=== PATIENT | female | born 1995 | race Two or more races ===

== ENCOUNTER 2019-11-06 16:10 | Inpatient (IN) | payer OTHER ==
[~2019-11-06] VITALS: Ht 152.4 cm; Wt 44.5 kg
[2019-11-06 16:45] LABS: MICROSCOPIC INDICATED
[2019-11-06] MEDS ORDERED: IBUPROFEN 600 MG TABLET PO ONE (17:00)
[2019-11-06] MEDS ORDERED: SODIUM CHLORIDE 0.9% 1,000ML IVBOLUS ONE ×2 (17:00→19:00)
[2019-11-06] MEDS ORDERED: SODIUM CHLORIDE FLUSH 10ML SYR IVF ONE (17:00)
[2019-11-06] MEDS ORDERED: IBUPROFEN 200 MG TABLET ONE (17:06)
[2019-11-06] MEDS ORDERED: CEFTRIAXONE PMX 1GM/50ML 50 ML IVPB ONE (17:30)
[2019-11-06 17:35] LABS: BASOPHILS % (AUTO) 0 % (0-1); EOSINOPHILS % (AUTO) 0 % (1-7); LYMPHOCYTES # (AUTO) 0.64 x10^3/uL (1-3.4); LYMPHOCYTES % (AUTO) 5 % (22-44); MD NO; MEAN CORPUSCULAR HGB CONC 33.7 g/dL (32.4-35.8); MEAN PLATELET VOLUME 8.4 fL (7.4-10.4); MONOCYTES # (AUTO) 0.38 x10^3/uL (0.2-0.8); MONOCYTES % (AUTO) 3 % (2-9); NEUTROPHILS # (AUTO) 12.56 x10^3/uL (1.8-6.8); NEUTROPHILS % (AUTO) 93 % (42-75); PLATELET COUNT 258 x10^3/uL (130-400); RED CELL DISTRIBUTION WIDTH 13.3 % (9.6-15.2)
[2019-11-06] MEDS ORDERED: CEFTRIAXONE PMX 1GM/50ML 50 ML ONE (17:36)
[2019-11-06 17:46] LABS: ALBUMIN 3.8 g/dL (3.4-5.0); ANION GAP 11 mmol/L (5-15); CALCIUM 9.5 mg/dL (8.5-10.1); CHLORIDE 103 mmol/L (98-107); CREATININE 0.93 mg/dL (0.55-1.02)
--- NOTE | 2019-11-06 17:46 | NUR ---
ABX RUNNING PER JUN. 2 SETS BLOOD CX COLLECTED PRIOR TO ADMIN.
--- NOTE | 2019-11-06 18:25 | NUR ---
ALL RESULTS ARE BACK AT THIS TIME. CHART UP FOR RECHECK.
--- NOTE | 2019-11-06 18:39 | NUR ---
2ND LITER NS RUNNING PER MD VERBAL ORDER. HR 118-120.
--- NOTE | 2019-11-06 19:19 | NUR ---
2ND LITER NS COMPLETE. HR CONTINUES IN LOW 120s. CHART UP FOR RECHECK.
--- NOTE | 2019-11-06 20:14 | NUR ---
HOSPITALIST AT BEDSIDE TO UPDATE PT ON POC.
[2019-11-06] MEDS ORDERED: ACETAMINOPHEN 500 MG TABLET PO ONE (20:30)
[2019-11-06] MEDS ORDERED: ACETAMINOPHEN 500 MG TABLET ONE (20:31)
--- NOTE | 2019-11-06 20:34 | NUR ---
PT TO BE ADMITTED. TEMP RETAKEN BY 103.2. TYLENOL GIVEN PER JUN.
--- NOTE | 2019-11-06 20:43 | NUR ---
COMPLETED MRI SCREENING WITH PT FRIEND OVER PHONE TRANSLATING.
--- NOTE | 2019-11-06 21:03 | NUR ---
PT GOING TO MRI
[2019-11-06] MEDS ORDERED: GADOTERATE 7.5 MMOL/15 ML SYR ONE (21:47)
--- NOTE | 2019-11-06 21:59 | NUR ---
PT BACK FROM MRI. HR STILL ELEVATED. TEMP 99.1. PT RESTING ON GURNEY.
[2019-11-06] MEDS ORDERED: CEFTRIAXONE PMX 1GM/50ML 50 ML IVPB SCH (22:30)
[2019-11-06] MEDS ORDERED: SODIUM CHLORIDE FLUSH 10ML SYR IVF PRN (22:30)
[2019-11-06] MEDS ORDERED: ONDANSETRON ODT 4 MG PO PRN (22:30)
--- NOTE | 2019-11-06 22:59 | NUR ---
REPORT GIVEN TO HERB BERKOWITZ.
[2019-11-06 23:50] VITALS: BP 93/59
[2019-11-06] MEDS: ENOXAPARIN 40 MG/0.4 ML SQ SCH (23:54)
[2019-11-07] MEDS: NS + 20MEQ KCL 1,000 ML IV SCH ×4 (00:12→21:40)
[2019-11-07] MEDS: IBUPROFEN 600 MG TABLET PO PRN ×2 (00:21→20:53)
[2019-11-07 01:06] VITALS: BP 99/57
[2019-11-07 07:34] VITALS: BP 90/55
[2019-11-07] MEDS: SENNA/DOCUSATE TABLET PO SCH (10:01)
[2019-11-07] MEDS: ACETAMINOPHEN 325 MG TABLET PO PRN ×3 (10:08→23:58)
[2019-11-07] MEDS: PIPERACILLIN/TAZO/PMX 3.375GM 50 ML IV SCH ×2 (11:36→20:43)
[2019-11-07 14:43] VITALS: BP 100/64
[2019-11-07 21:08] VITALS: BP 106/69
[2019-11-07] MEDS: ENOXAPARIN 40 MG/0.4 ML SQ SCH (23:58)
[2019-11-08 00:02] VITALS: BP 91/56
[2019-11-08] MEDS: PIPERACILLIN/TAZO/PMX 3.375GM 50 ML IV SCH ×3 (04:56→20:00)
[2019-11-08] MEDS: ACETAMINOPHEN 325 MG TABLET PO PRN ×2 (05:20→20:00)
[2019-11-08] MEDS: SENNA/DOCUSATE TABLET PO SCH ×2 (07:56→08:33)
[2019-11-08 09:29] VITALS: BP 99/66
[2019-11-08 14:05] VITALS: BP 113/76
[2019-11-08 19:57] VITALS: BP 114/74
[2019-11-08] MEDS: ENOXAPARIN 40 MG/0.4 ML SQ SCH (23:16)
[2019-11-09 00:57] VITALS: BP 154/89
[2019-11-09 01:30] VITALS: BP 94/60
[2019-11-09] MEDS: PIPERACILLIN/TAZO/PMX 3.375GM 50 ML IV SCH ×3 (04:48→20:12)
[2019-11-09] MEDS: ACETAMINOPHEN 325 MG TABLET PO PRN ×2 (04:56→09:22)
[2019-11-09 06:09] LABS: BASOPHILS # (AUTO) 0.03 x10^3/uL (0-0.1); BASOPHILS % (AUTO) 0 % (0-1); EOSINOPHILS # (AUTO) 0.02 x10^3/uL (0-0.4); EOSINOPHILS % (AUTO) 0 % (1-7); LYMPHOCYTES # (AUTO) 1.46 x10^3/uL (1-3.4); LYMPHOCYTES % (AUTO) 21 % (22-44); MD NO; MEAN CORPUSCULAR HEMOGLOBIN 30.3 pg (27.0-34.8); MEAN CORPUSCULAR HGB CONC 32.7 g/dL (32.4-35.8); MEAN CORPUSCULAR VOLUME 92.4 fL (80-100); MEAN PLATELET VOLUME 7.9 fL (7.4-10.4); MONOCYTES # (AUTO) 0.76 x10^3/uL (0.2-0.8); MONOCYTES % (AUTO) 11 % (2-9); NEUTROPHILS # (AUTO) 4.71 x10^3/uL (1.8-6.8); NEUTROPHILS % (AUTO) 68 % (42-75); PLATELET COUNT 237 x10^3/uL (130-400); RED CELL DISTRIBUTION WIDTH 13.9 % (9.6-15.2)
[2019-11-09 06:37] LABS: ALANINE AMINOTRANSFERASE 42 U/L (12-78); ALBUMIN 2.8 g/dL (3.4-5.0); ANION GAP 7 mmol/L (5-15); CHLORIDE 109 mmol/L (98-107); CREATININE 0.67 mg/dL (0.55-1.02)
[2019-11-09 06:39] LABS: ALKALINE PHOSPHATASE 86 U/L (45-117); BILIRUBIN,TOTAL 0.3 mg/dL (0.2-1.0); TOTAL PROTEIN 7.4 g/dL (6.4-8.2)
[2019-11-09 07:35] VITALS: BP 96/64
[2019-11-09] MEDS: SENNA/DOCUSATE TABLET PO SCH (09:00)
[2019-11-09 14:53] VITALS: BP 111/74
[2019-11-09 19:40] VITALS: BP 106/70
[2019-11-09] MEDS: IBUPROFEN 600 MG TABLET PO PRN (20:12)
[2019-11-09] MEDS: ENOXAPARIN 40 MG/0.4 ML SQ SCH (22:51)
[2019-11-10 01:04] VITALS: BP 92/62
[2019-11-10] MEDS: ACETAMINOPHEN 325 MG TABLET PO PRN (01:09)
[2019-11-10] MEDS: PIPERACILLIN/TAZO/PMX 3.375GM 50 ML IV SCH ×3 (03:40→19:44)
[2019-11-10 06:29] VITALS: BP 103/68
[2019-11-10] MEDS: SENNA/DOCUSATE TABLET PO SCH (08:41)
[2019-11-10 12:05] VITALS: BP 106/67
[2019-11-10] MEDS: IBUPROFEN 600 MG TABLET PO PRN (17:44)
[2019-11-10 19:52] VITALS: BP 111/73
[2019-11-10] MEDS: ENOXAPARIN 40 MG/0.4 ML SQ SCH (22:39)
[2019-11-11 00:17] VITALS: BP 94/62
[2019-11-11] MEDS: IBUPROFEN 600 MG TABLET PO PRN ×2 (00:49→10:05)
[2019-11-11] MEDS: PIPERACILLIN/TAZO/PMX 3.375GM 50 ML IV SCH ×2 (03:43→10:36)
[2019-11-11 07:02] VITALS: BP 99/67
[2019-11-11] MEDS ORDERED: BUTA1CAP30 PO (09:49)
[2019-11-11] MEDS ORDERED: SULF1TAB24 PO (09:49)
[2019-11-11] MEDS: SENNA/DOCUSATE TABLET PO SCH (10:05)
== END 2019-11-11 13:00 | disposition home or self-care (01) | DRG 872 ==
LOC: ED 23:02 → EDIP 23:10 → 4WST 23:14 → DCLOUNGE 11-11 12:58
PROVIDERS: ADMIT Family Medicine; ATTEND Family Medicine
DX: A41.51 Sepsis due to Escherichia coli [E. coli] (principal); E87.1 Hypo-osmolality and hyponatremia; N10 Acute pyelonephritis; E86.0 Dehydration; E87.6 Hypokalemia; M51.27 Other intervertebral disc displacement, lumbosacral region
CPT/HCPCS: 36415; 71045; 72158; 80048; 80053; 81001; 82040; 83605; 84145; 84703; 85025; 87040; 87077; 87086; 87186; 96361; 96365; G0378; J0696; J1650; J2543; J3480; A9575; J7030